=== PATIENT | female | born 1990 | race Hispanic/Latino ===

== ENCOUNTER 2022-02-01 11:03 | Inpatient (IN) | payer MEDICAID ==
[~2022-02-01] VITALS: Ht 157.5 cm; Wt 66.2 kg
[2022-02-01 11:44] LABS: BASOPHILS % (AUTO) 0.6 % (0.0-5.0); HEMATOCRIT 42.4 % (36-48); LYMPHOCYTES % (AUTO) 19.8 % (21.0-51.0); MEAN CORPUSCULAR HEMOGLOBIN 36.2 pg (27.0-33.0); MEAN CORPUSCULAR HGB CONC 44.8 g/dL (32.0-36.0); MEAN CORPUSCULAR VOLUME 80.8 fL (79-99); MONOCYTES % (AUTO) 3.8 % (3.0-13.0); PLATELET COUNT (AUTO) 325 K/uL (130-400); RED BLOOD CELL COUNT(AUTO) 5.25 MIL/uL (4.00-5.50); RED CELL DISTRIBUTION WIDTH 12.9 % (11.0-15.5); WHITE BLOOD COUNT (AUTO) 11.8 K/uL (4.8-10.8)
[2022-02-01 11:58] LABS: POTASSIUM 3.8 mmol/L (3.5-5.1)
[2022-02-01] MEDS ORDERED: PANTOPRAZOLE 40 MG/VIAL IVP ONE (12:00)
[2022-02-01] MEDS ORDERED: LACTATED RINGERS 1000ML 1,000 ML IV ONE (12:00)
[2022-02-01] MEDS ORDERED: ONDANSETRON 4MG INJ ONE (12:13)
[2022-02-01] MEDS ORDERED: KETOROLAC 30MG VIAL (30MG/ML) ONE (12:14)
[2022-02-01] MEDS ORDERED: KETOROLAC 30MG VIAL (30MG/ML) IVP ONE (12:30)
[2022-02-01 12:51] LABS: ALBUMIN 3.8 g/dL (3.5-5.0); BILIRUBIN,TOTAL 0.8 mg/dL (0.2-1.0); CREATININE 0.6 mg/dL (0.5-1.5); TOTAL PROTEIN, SERUM 7.8 g/dL (6.0-8.3)
[2022-02-01] MEDS ORDERED: INSULIN REGULAR, HUMAN 3ML 100 UNIT in 0.9%NACL 100ML 99 ML IV PRN ×2 (15:00)
[2022-02-01 15:23] LABS: HCG,QUAL RESULT NEGATIVE (NEGATIVE)
[2022-02-01 15:29] LABS: AMPHET/METH SCREEN,URINE NEGATIVE (NEGATIVE); BARBITURATE SCREEN, URINE NEGATIVE (NEGATIVE); BENZODIAZEPINES SCREEN,URINE NEGATIVE (NEGATIVE); CANNABINOID SCREEN,URINE POSITIVE (NEGATIVE); COCAINE SCREEN,URINE NEGATIVE (NEGATIVE); OPIATE SCREEN,URINE NEGATIVE (NEGATIVE); PHENCYCLIDINE SCREEN,URINE NEGATIVE (NEGATIVE)
[2022-02-01] MEDS ORDERED: FENTANYL CITRATE PF 50 MCG/1 ML 2ML VIAL IVP ONE (16:00)
[2022-02-01] MEDS ORDERED: IOHEXOL-350 75 ML VIAL IV ONE (16:08)
[2022-02-01] MEDS ORDERED: INSULIN HUMULIN R 100 UNIT/ML 3ML IV SCH (16:30)
[2022-02-01] MEDS ORDERED: 0.9%NACL 1000ML 1,000 ML IV SCH (16:30)
[2022-02-01] MEDS ORDERED: HYDROMORPHONE 0.5 MG SYG (0.5MG/0.5ML) IVP PRN (16:30)
[2022-02-01] MEDS ORDERED: POTASSIUM CHLORIDE 10MEQ/100ML 100 ML IV PRN (16:30)
[2022-02-01 16:41] LABS: APPEARANCE,URINE Clear (CLEAR); BILIRUBIN,URINE Negative (NEGATIVE); COLOR,URINE Yellow (YELLOW); GLUCOSE, URINE (UA) >=1000 mg/dL (NEGATIVE); KETONES,URINE >=160 mg/dL (NEGATIVE); LEUKOCYTE ESTERASE ,URINE Negative (NEGATIVE); NITRATE,URINE Negative (NEGATIVE); OCCULT BLOOD,URINE Moderate (NEGATIVE); PROTEIN,URINE POS 2+ mg/dL (NEGATIVE); UROBILINOGEN,URINE 0.2 mg/dL (0.2-1.0)
[2022-02-01 16:49] LABS: WBC,URINE 0-1 /HPF (0-1)
[2022-02-01 16:50] LABS: BACTERIA,URINE Rare /HPF (None Seen); SQUAMOUS EPITHELIAL CELL,UR Rare /HPF (0-2)
[2022-02-01 17:11] LABS: ABG BASE EXCESS -2.2 mmol/L (-2.0-3.0); ABG HCO3 17.2 mmol/L (21.0-28.0); ABG OXYGEN SATURATION 98.5 % (95.0-99.0); ABG PCO2 20 mmHg (32-45)
[2022-02-01 17:34] LABS: MAGNESIUM 1.7 mg/dL (1.80-2.40); POTASSIUM 3.8 mmol/L (3.5-5.1)
[2022-02-01] MEDS: 0.9%NACL 1000ML 1,000 ML IV SCH ×2 (17:53→23:13)
[2022-02-01] MEDS: HYDROMORPHONE 0.5 MG SYG (0.5MG/0.5ML) IVP PRN ×2 (17:53→20:30)
[2022-02-01 19:24] LABS: CREATININE 0.5 mg/dL (0.5-1.5)
[2022-02-01] MEDS: MAGNESIUM 2GM PREMIX 50ML 50 ML IV SCH (20:39)
[2022-02-01] MEDS: FAMOTIDINE 20MG VIAL IV SCH (21:00)
[2022-02-01 23:28] LABS: CREATININE 0.4 mg/dL (0.5-1.5); MAGNESIUM 2.6 mg/dL (1.80-2.40); POTASSIUM 3.6 mmol/L (3.5-5.1)
[2022-02-02] VITALS (33 sets, daily range): BP systolic 112–151; BP diastolic 69–101
[2022-02-02] MEDS: PROMETHAZINE HCL 25 MG/ML 1ML AMPULE IM PRN ×2 (00:25→05:32)
[2022-02-02] MEDS ORDERED: HYDROMORPHONE 1 MG INJ IVP ONE (00:30)
[2022-02-02] MEDS: DEXTROSE 5 %-0.45 % NACL 1,000 ML IV PRN ×2 (01:13→07:54)
[2022-02-02] MEDS: 0.9%NACL 1000ML 1,000 ML IV SCH ×5 (03:28→14:46)
[2022-02-02 04:29] LABS: CREATININE 0.5 mg/dL (0.5-1.5); POTASSIUM 3.6 mmol/L (3.5-5.1)
[2022-02-02] MEDS: HYDROMORPHONE 0.5 MG SYG (0.5MG/0.5ML) IVP PRN ×4 (05:14→22:02)
[2022-02-02] MEDS: FAMOTIDINE 20MG VIAL IV SCH ×2 (07:45→20:00)
[2022-02-02] MEDS: ENOXAPARIN SODIUM 40 MG/0.4 ML SYRINGE SQ SCH (07:46)
[2022-02-02 09:23] LABS: HEMOGLOBIN A1C 10.1 % (4.0-6.0)
[2022-02-02] MEDS ORDERED: POTASSIUM CHLORIDE 20MEQ/100ML 100 ML IV PRN (09:30)
[2022-02-02] MEDS: LIDOCAINE HCL-MPF 1% 2ML VIAL IV PRN ×3 (10:03→20:30)
[2022-02-02] MEDS: POTASSIUM CHLORIDE 20MEQ/100ML 100 ML IV PRN ×2 (10:04→16:06)
[2022-02-02 10:31] LABS: CREATININE 0.3 mg/dL (0.5-1.5); MAGNESIUM 1.9 mg/dL (1.80-2.40); POTASSIUM 3.5 mmol/L (3.5-5.1)
[2022-02-02] MEDS: ONDANSETRON 4MG INJ IV PRN ×3 (10:43→22:02)
[2022-02-02] MEDS: MAGNESIUM 2GM PREMIX 50ML 50 ML IV SCH ×2 (11:38→16:06)
[2022-02-02] MEDS ORDERED: INSULIN REGULAR, HUMAN 3ML 100 UNIT in 0.9%NACL 100ML 99 ML IV PRN ×6 (12:30→16:30)
[2022-02-02] MEDS: DEXTROSE 10%-WATER 1,000 ML IV SCH ×2 (12:42→20:29)
[2022-02-02] MEDS ORDERED: 0.9%NACL 1000ML 2,000 ML IV ONE (13:40)
[2022-02-02] MEDS: ACETAMINOPHEN 325 MG TAB PO PRN ×2 (13:48→21:43)
[2022-02-02] MEDS ORDERED: PHARMACY COMMUNICATION MISC SCH (14:00)
[2022-02-02] MEDS ORDERED: 0.9%NACL 1000ML 2,000 ML IV SCH (14:00)
[2022-02-02] MEDS ORDERED: 0.9%NACL 1000ML 1,000 ML IV SCH (14:00)
[2022-02-02] MEDS: ZOSYN 3.375GM +NS 50ML IV SCH ×2 (14:04→20:00)
[2022-02-02] MEDS: POTASSIUM CHLORIDE 20MEQ/10ML 20 MEQ in 0.9%NACL 1000ML 990 ML IV SCH (15:34)
[2022-02-02] MEDS: METOPROLOL TARTRATE 1 MG/ML 5ML VIAL IV SCH (17:09)
[2022-02-02] MEDS ORDERED: OMEP40CA21 PO (17:15)
[2022-02-02] MEDS ORDERED: ICOS1CAP PO (17:15)
[2022-02-02] MEDS ORDERED: CALC60CR5 TP (17:15)
[2022-02-02] MEDS ORDERED: INSU100I26 SQ (17:15)
[2022-02-02] MEDS: FENOFIBRATE NANOCRYSTALLIZED 145 MG TAB PO SCH (20:00)
[2022-02-02] MEDS: ATORVASTATIN 20 MG TABLET PO SCH (20:00)
[2022-02-03] VITALS (17 sets, daily range): BP systolic 98–145; BP diastolic 59–83
[2022-02-03] MEDS: METOPROLOL TARTRATE 1 MG/ML 5ML VIAL IV SCH ×3 (00:14→11:44)
[2022-02-03 00:40] LABS: CREATININE 0.7 mg/dL (0.5-1.5); POTASSIUM 3.1 mmol/L (3.5-5.1)
[2022-02-03] MEDS: KCL 20 MEQ ERTAB PO PRN ×5 (01:12→22:08)
[2022-02-03] MEDS: HYDROMORPHONE 0.5 MG SYG (0.5MG/0.5ML) IVP PRN ×4 (03:22→13:21)
[2022-02-03] MEDS: DEXTROSE 10%-WATER 1,000 ML IV SCH (03:25)
[2022-02-03] MEDS: POTASSIUM CHLORIDE 20MEQ/10ML 20 MEQ in 0.9%NACL 1000ML 990 ML IV SCH ×2 (03:25→23:19)
[2022-02-03] MEDS: INSULIN REGULAR, HUMAN 3ML 100 UNIT in 0.9%NACL 100ML 99 ML IV SCH ×2 (03:35)
[2022-02-03] MEDS: ONDANSETRON 4MG INJ IV PRN ×4 (05:19→23:19)
[2022-02-03] MEDS: ZOSYN 3.375GM +NS 50ML IV SCH ×3 (05:19→22:08)
[2022-02-03 06:28] LABS: HEMATOCRIT 36.6 % (36-48); MEAN CORPUSCULAR HGB CONC 33.6 g/dL (32.0-36.0); MEAN CORPUSCULAR VOLUME 83.4 fL (79-99); RED BLOOD CELL COUNT(AUTO) 4.39 MIL/uL (4.00-5.50); WHITE BLOOD COUNT (AUTO) 6.6 K/uL (4.8-10.8)
[2022-02-03 06:46] LABS: ALBUMIN 2.2 g/dL (3.5-5.0); BILIRUBIN,TOTAL 0.6 mg/dL (0.2-1.0); CREATININE 0.6 mg/dL (0.5-1.5); MAGNESIUM 2.3 mg/dL (1.80-2.40); PHOSPHORUS 1.1 mg/dL (2.5-4.9); POTASSIUM 3.6 mmol/L (3.5-5.1); TOTAL PROTEIN, SERUM 5.8 g/dL (6.0-8.3)
[2022-02-03] MEDS ORDERED: DEXTROSE 10 % IN WATER 500 ML IV SCH (08:00)
[2022-02-03] MEDS: FAMOTIDINE 20MG VIAL IV SCH ×2 (08:41→20:28)
[2022-02-03] MEDS: ENOXAPARIN SODIUM 40 MG/0.4 ML SYRINGE SQ SCH (08:42)
[2022-02-03] MEDS: DEXTROSE 5%-LACTATED RINGERS 1,000 ML IV SCH ×3 (10:03→23:19)
[2022-02-03] MEDS ORDERED: LABETALOL 20MG VIAL IV PRN (15:30)
[2022-02-03] MEDS ORDERED: HYDROMORPHONE 0.5 MG SYG (0.5MG/0.5ML) IVP PRN (16:30)
[2022-02-03] MEDS: POTASSIUM PHOS 15 mMOL+NS250ML 250 ML IV PRN (17:44)
[2022-02-03 18:10] LABS: LIPASE 786 U/L (114-286); TRIGLYCERIDES 634 mg/dL (30-200)
[2022-02-03] MEDS: HYDROMORPHONE 1 MG INJ IVP PRN ×2 (19:24→23:20)
[2022-02-03 19:28] LABS: CREATININE 0.5 mg/dL (0.5-1.5); POTASSIUM 3.6 mmol/L (3.5-5.1)
[2022-02-03] MEDS: ATORVASTATIN 20 MG TABLET PO SCH (20:28)
[2022-02-03] MEDS: FENOFIBRATE NANOCRYSTALLIZED 145 MG TAB PO SCH (20:28)
[2022-02-04] VITALS (15 sets, daily range): BP systolic 110–136; BP diastolic 71–89
[2022-02-04] MEDS: INSULIN REGULAR, HUMAN 3ML 100 UNIT in 0.9%NACL 100ML 99 ML IV SCH ×2 (02:17)
[2022-02-04] MEDS: ONDANSETRON 4MG INJ IV PRN ×2 (03:02→11:21)
[2022-02-04] MEDS: HYDROMORPHONE 1 MG INJ IVP PRN ×2 (03:02→09:24)
[2022-02-04 03:42] LABS: HEMATOCRIT 32.9 % (36-48); MEAN CORPUSCULAR HEMOGLOBIN 27.7 pg (27.0-33.0); MEAN CORPUSCULAR HGB CONC 32.8 g/dL (32.0-36.0); MEAN CORPUSCULAR VOLUME 84.4 fL (79-99); RED BLOOD CELL COUNT(AUTO) 3.9 MIL/uL (4.00-5.50); WHITE BLOOD COUNT (AUTO) 6.6 K/uL (4.8-10.8)
[2022-02-04 03:55] LABS: INR 1.06 (0.85-1.15); PROTHROMBIN TIME 11.5 SEC (9.6-11.6)
[2022-02-04 03:59] LABS: ALBUMIN 2.1 g/dL (3.5-5.0); BILIRUBIN,TOTAL 0.3 mg/dL (0.2-1.0); CREATININE 0.5 mg/dL (0.5-1.5); MAGNESIUM 1.8 mg/dL (1.80-2.40); PHOSPHORUS 1.7 mg/dL (2.5-4.9); POTASSIUM 3.7 mmol/L (3.5-5.1); TOTAL PROTEIN, SERUM 5.8 g/dL (6.0-8.3)
[2022-02-04 04:27] LABS: PARTIAL THROMBOPLASTIN TIME < 20.0 SEC (26.3-35.5)
[2022-02-04] MEDS: DEXTROSE 5%-LACTATED RINGERS 1,000 ML IV SCH ×2 (06:39→07:43)
[2022-02-04] MEDS: ZOSYN 3.375GM +NS 50ML IV SCH ×3 (06:39→20:04)
[2022-02-04] MEDS: FAMOTIDINE 20MG VIAL IV SCH ×2 (08:52→20:04)
[2022-02-04] MEDS: ENOXAPARIN SODIUM 40 MG/0.4 ML SYRINGE SQ SCH (08:53)
[2022-02-04] MEDS: POTASSIUM PHOS 15 mMOL+NS250ML 250 ML IV PRN (08:55)
[2022-02-04] MEDS: MAGNESIUM 2GM PREMIX 50ML 50 ML IV SCH (09:07)
[2022-02-04] MEDS: ACETAMINOPHEN 325 MG TAB PO PRN (11:22)
[2022-02-04] MEDS: INSULIN HUMULIN R 100 UNIT/ML 3ML SQ SCH ×3 (11:50→20:06)
[2022-02-04] MEDS: POTASSIUM CHLORIDE 20MEQ/10ML 20 MEQ in 0.9%NACL 1000ML 990 ML IV SCH (16:41)
[2022-02-04] MEDS: FENOFIBRATE NANOCRYSTALLIZED 145 MG TAB PO SCH (20:04)
[2022-02-04] MEDS: ATORVASTATIN 20 MG TABLET PO SCH (20:04)
[2022-02-04] MEDS: HYDROMORPHONE 0.5 MG SYG (0.5MG/0.5ML) IVP PRN (20:49)
[2022-02-05] MEDS: HYDROMORPHONE 0.5 MG SYG (0.5MG/0.5ML) IVP PRN (00:55)
[2022-02-05] MEDS: ACETAMINOPHEN 325 MG TAB PO PRN ×3 (03:07→20:43)
[2022-02-05 04:00] VITALS: BP 120/81
[2022-02-05] MEDS: ZOSYN 3.375GM +NS 50ML IV SCH ×3 (04:05→20:42)
[2022-02-05 04:42] LABS: HEMATOCRIT 38.7 % (36-48); MEAN CORPUSCULAR HEMOGLOBIN 27.6 pg (27.0-33.0); RED BLOOD CELL COUNT(AUTO) 4.5 MIL/uL (4.00-5.50); RED CELL DISTRIBUTION WIDTH 13.7 % (11.0-15.5); WHITE BLOOD COUNT (AUTO) 8.2 K/uL (4.8-10.8)
[2022-02-05 05:27] LABS: ALBUMIN 2.6 g/dL (3.5-5.0); BILIRUBIN,TOTAL 0.5 mg/dL (0.2-1.0); CREATININE 0.5 mg/dL (0.5-1.5); MAGNESIUM 1.8 mg/dL (1.80-2.40); PHOSPHORUS 2.9 mg/dL (2.5-4.9); POTASSIUM 3.3 mmol/L (3.5-5.1)
[2022-02-05] MEDS: INSULIN HUMULIN R 100 UNIT/ML 3ML SQ SCH ×4 (05:34→20:44)
[2022-02-05] MEDS: POTASSIUM CHLORIDE 20MEQ/100ML 100 ML IV PRN (05:54)
[2022-02-05] MEDS: MAGNESIUM 2GM PREMIX 50ML 50 ML IV SCH (05:55)
[2022-02-05 07:43] VITALS: BP 116/75
[2022-02-05] MEDS: FAMOTIDINE 20MG VIAL IV SCH ×2 (08:01→20:44)
[2022-02-05] MEDS: ENOXAPARIN SODIUM 40 MG/0.4 ML SYRINGE SQ SCH (08:02)
[2022-02-05] MEDS: INSULIN GLARGINE 100 UNITS/ML 10 ML VIAL SQ SCH (08:03)
[2022-02-05] MEDS: KCL 20 MEQ ERTAB PO SCH (11:20)
[2022-02-05 11:55] VITALS: BP 133/87
[2022-02-05] MEDS: POTASSIUM CHLORIDE 20MEQ/10ML 20 MEQ in 0.9%NACL 1000ML 990 ML IV SCH (13:54)
[2022-02-05] MEDS ORDERED: HYDROCORTISONE 25 MG SUPPOSITORY PR SCH ×2 (14:30→16:00)
[2022-02-05 16:05] VITALS: BP 131/92
[2022-02-05] MEDS ORDERED: HYDROCORTISONE 25 MG SUPPOSITORY PR ONE (16:23)
[2022-02-05 19:31] VITALS: BP 140/89
[2022-02-05] MEDS: ATORVASTATIN 20 MG TABLET PO SCH (20:43)
[2022-02-05] MEDS: FENOFIBRATE NANOCRYSTALLIZED 145 MG TAB PO SCH (20:43)
[2022-02-06 00:21] VITALS: BP 125/76
[2022-02-06 04:00] VITALS: BP 124/74
[2022-02-06 04:16] LABS: MEAN CORPUSCULAR HEMOGLOBIN 27.9 pg (27.0-33.0); MEAN CORPUSCULAR HGB CONC 33.3 g/dL (32.0-36.0); MEAN CORPUSCULAR VOLUME 83.7 fL (79-99); RED BLOOD CELL COUNT(AUTO) 4.66 MIL/uL (4.00-5.50); RED CELL DISTRIBUTION WIDTH 13.2 % (11.0-15.5); WHITE BLOOD COUNT (AUTO) 8.2 K/uL (4.8-10.8)
[2022-02-06 04:43] LABS: ALBUMIN 2.7 g/dL (3.5-5.0); BILIRUBIN,TOTAL 0.4 mg/dL (0.2-1.0); CREATININE 0.6 mg/dL (0.5-1.5); MAGNESIUM 1.9 mg/dL (1.80-2.40); POTASSIUM 3.6 mmol/L (3.5-5.1); TOTAL PROTEIN, SERUM 7.2 g/dL (6.0-8.3)
[2022-02-06] MEDS: ZOSYN 3.375GM +NS 50ML IV SCH ×2 (04:54→12:07)
[2022-02-06] MEDS: KCL 20 MEQ ERTAB PO SCH (05:45)
[2022-02-06 06:57] LABS: CRP QUANTITATIVE 100.6 mg/L (0.00-9.0)
[2022-02-06] MEDS: INSULIN HUMULIN R 100 UNIT/ML 3ML SQ SCH ×2 (07:25→11:30)
[2022-02-06 08:15] VITALS: BP 118/72
[2022-02-06] MEDS: FAMOTIDINE 20MG VIAL IV SCH (09:34)
[2022-02-06] MEDS: INSULIN GLARGINE 100 UNITS/ML 10 ML VIAL SQ SCH (09:34)
[2022-02-06] MEDS: ENOXAPARIN SODIUM 40 MG/0.4 ML SYRINGE SQ SCH (09:38)
[2022-02-06] MEDS: HYDROMORPHONE 0.5 MG SYG (0.5MG/0.5ML) IVP PRN (09:40)
[2022-02-06] MEDS: POTASSIUM CHLORIDE 20MEQ/10ML 20 MEQ in 0.9%NACL 1000ML 990 ML IV SCH (09:54)
[2022-02-06] MEDS ORDERED: ICOS1CAP PO (11:28)
[2022-02-06] MEDS ORDERED: FENO145T PO (11:28)
[2022-02-06] MEDS ORDERED: ATOR20TA65 PO (11:28)
[2022-02-06] MEDS ORDERED: DULO30CA2 PO (11:28)
[2022-02-06] MEDS ORDERED: DULOXETINE HCL 30 MG CAP PO SCH ×2 (11:30)
[2022-02-06 12:00] VITALS: BP 121/71
[2022-02-06] MEDS ORDERED: 0.9%NACL 50ML 50 ML IV ONE (12:06)
[2022-02-06 12:21] LABS: CREATINE KINASE, TOTAL 22 U/L (21-232); MYOGLOBIN 13 ng/mL (10-92)
[2022-02-06 16:00] VITALS: BP 131/86
== END 2022-02-06 16:30 | disposition home or self-care (01) | DRG 282 ==
LOC: EDH 11:03 → EDHIP 11:04 → 2CH 02-02 02:06 → 2DH 02-04 22:53
PROVIDERS: ADMIT Internal Medicine; ATTEND Internal Medicine
DX: K85.90 Acute pancreatitis without necrosis or infection, unspecified (principal); E11.10 Type 2 diabetes mellitus with ketoacidosis without coma; E87.8 Other disorders of electrolyte and fluid balance, not elsewhere classified; E66.3 Overweight; E86.1 Hypovolemia; E87.1 Hypo-osmolality and hyponatremia; E78.1 Pure hyperglyceridemia; F12.90 Cannabis use, unspecified, uncomplicated; Z68.28 Body mass index [BMI] 28.0-28.9, adult; E86.0 Dehydration; Z79.4 Long term (current) use of insulin; Z91.19 Patient's noncompliance with other medical treatment and regimen; E78.2 Mixed hyperlipidemia; I10 Essential (primary) hypertension; L40.50 Arthropathic psoriasis, unspecified
CPT/HCPCS: 36415; 70450; 71045; 74177; 80048; 80053; 80061; 80305; 81001; 81025; 82150; 82550; 82803; 82948; 83036; 83605; 83690; 83735; 83874; 83930; 83935; 84100; 84132; 84145; 84478; 84484; 85025; 85027; 85610; 85730; 86140; 87040; 87088; 93005; 97039; 99291; C9113; G0378; J1170; J1650; J1815; J1885; J2405; J2543; J2550; J3475; J3480; J3490; J7030; J7042; J7120; Q9967